=== PATIENT | male | born 1980 | race Caucasian/White ===

== ENCOUNTER 2024-11-20 17:21 | Emergency (ER) | payer BC ==
[2024-11-20] MEDS: MORPHINE SULFATE 4 MG/ML SYRINGE IM STA (19:38)
[2024-11-20] MEDS: CLINDAMYCIN 150 MG/ML 4 ML VIAL IM STA (19:38)
[2024-11-20] MEDS: KETOROLAC 15 MG/ML 1 ML VIAL IM STA (19:39)
--- NOTE | 2024-11-20 19:42 | ED ---
ENT HPI - General Chief complaint: Dental/Oral Stated complaint: bottom right side tooth absess Time Seen by Provider: 11/20/24 19:00 Source: patient, RN notes reviewed Mode of arrival: ambulatory Limitations: no limitations - History of Present Illness Initial comments: This is a 44-year-old male who presents to the emergency department for concerns of a dental infection. Patient has been dealing with a dental infection on the right lower jaw for the last couple of weeks. He was put on Pen-Vee K, which he has since finished. States that it did not get any better. The tooth is also broken. He is usually able to control his pain with ibuprofen, however that has not been the case this time. He is unable to get it removed until the end of November. Denies any fevers or chills. MD complaint: tooth pain - Related Data Previous Rx's Medication Instructions Recorded HYDROcodone/APAP 5-325MG [Townsend 1 tab PO Q6HR PRN 3 Days #12 tab 11/20/24 5-325] Ketorolac [Toradol] 10 mg PO Q6HR PRN #15 tab 11/20/24 clindamycin HCL 300 mg PO QID 7 Days #28 capsule 11/20/24 Allergies Allergy/AdvReac Type Severity Reaction Status Date / Time No Known Allergies Allergy Verified 11/20/24 17:32 Review of Systems ROS Statement: Those systems with pertinent positive or pertinent negative responses have been documented in the HPI. ROS Other: All systems not noted in ROS Statement are negative. Past Medical History Past Medical History: Pulmonary Embolus (PE) Additional Past Medical History / Comment(s): Ulcerative Colitis Past Surgical History: Back Surgery Smoking Status: Never smoker Past Alcohol Use History: Rare Past Drug Use History: None Reported General Exam Limitations: no limitations General appearance: alert, in no apparent distress Head exam: Present: atraumatic, normocephalic, normal inspection ENT exam: Present: other (Multiple dental caries with cracked teeth on the right lower jawline. Mild fullness without palpable or drainable abscess. No elevation of the tongue or swelling to the floor of the mouth.) Respiratory exam: Present: normal lung sounds bilaterally. Absent: respiratory distress, wheezes, rales, rhonchi, stridor Cardiovascular Exam: Present: regular rate, normal rhythm, normal heart sounds. Absent: systolic murmur, diastolic murmur, rubs, gallop, clicks Neurological exam: Present: alert, oriented X3, CN II-XII intact Psychiatric exam: Present: normal affect, normal mood Course Vital Signs 11/20/24 11/20/24 17:32 20:23 Temperature 97.4 F L 97.7 F Pulse Rate 74 78 Respiratory 20 18 Rate Blood Pressure 137/88 125/84 O2 Sat by Pulse 100 98 Oximetry Medical Decision Making - Medical Decision Making This is a 44-year-old male who presents to the emergency department for dental pain. Was pt. sent in by a medical professional or institution? @ -No Did you speak to anyone other than the patient for history? @ -No Did you review nursing and triage notes? @ -Yes, and I agree, it is accurate with regards to the patient's symptoms. Were old charts reviewed? @ -No Differential Diagnosis? @ -Differential Dental Pain: Dental abscess, chipped tooth, dental carries, jonel's angina, trigeminal neuralgia, this is not meant to be an all-inclusive list. EKG interpreted by me (3pts min.)? @ -Not obtained X-rays interpreted by me (1pt min.)? @ -Not obtained CT interpreted by me (1pt min.)? @ -Not obtained U/S interpreted by me (1pt. min.)? @ -Not obtained What testing was considered but not performed? (CT, X-rays, U/S, labs)? Why? @ -None What meds were considered but not given? Why? @ -None Did you discuss the management of the patient with other professionals? @ -No Did you reconcile home meds? @ -No Was smoking cessation discussed for >3mins.? @ -No Was critical care preformed (if so, how long)? @ -No Were there social determinants of health that impacted care today? How? (Homelessness, low income, unemployed, alcoholism, drug addiction, transportation, low edu. Level, literacy, decrease access to med. care, [facility]ci, rehab)? @ -No Was there de-escalation of care discussed even if they declined? (Discuss DNR or withdrawal of care, Hospice)? @ -No What co-morbidities impacted this encounter? (DM, HTN, Smoking, COPD, CAD, Cancer, CVA, Hep., AIDS, mental health diagnosis, sleep apnea, morbid obesity)? @ -None Was patient admitted / discharged? @ -Discharged. Physical examination reveals multiple dental caries and chipped teeth. He had some mild fullness and signs of infection, however there was no drainable or palpable abscess. He also had no elevation of the tongue or swelling to the floor of the mouth to suggest Jonel's angina. Given that he had no improvement with Pen-Vee K, advised that we can put him on clindamycin. This was prescribed and an initial dose was administered in the emergency d epartment. Toradol prescribed for pain control. Patient discharged home in stable condition. Case discussed with ED attending Dr. Membreno. Return precautions reviewed in depth, the patient is instructed to return to the emergency department with any new, worsening, or concerning symptoms. Patient verbalized understanding. Undiagnosed new problem with uncertain prognosis? @ -None Drug Therapy requiring intensive monitoring for toxicity (Heparin, Nitro, Insulin, Cardizem)? @ -None Were any procedures done? @ -None Diagnosis/symptom? @ -Dental infection Acute, or Chronic, or Acute on Chronic? @ -Acute Uncomplicated (without systemic symptoms) or Complicated (systemic symptoms)? @ -Uncomplicated Side effects of treatment? @ -None Exacerbation, Progression, or Severe Exacerbation] @ -Not applicable Poses a threat to life or bodily function? @ -No Disposition Clinical Impression: Dental infection Disposition: HOME SELF-CARE Instructions (If sedation given, give patient instructions): Dental Abscess (ED), Toothache (ED) Additional Instructions: Return to the emergency department with any new, worsening, or concerning symptoms. Take the antibiotic as prescribed for 7 days. Take the Toradol with Tylenol as needed for pain relief. If you choose to take the Toradol, do not take any other anti-inflammatories such as ibuprofen, take one or the other. Take the Townsend sparingly when your pain is the most severe. Follow-up with your dentist. Prescriptions: clindamycin HCL 300 mg PO QID 7 Days #28 capsule HYDROcodone/APAP 5-325MG [Townsend 5-325] 1 tab PO Q6HR PRN 3 Days #12 tab PRN Reason: Pain Ketorolac [Toradol] 10 mg PO Q6HR PRN #15 tab PRN Reason: Pain Is patient prescribed a controlled substance at d/c from ED?: Yes When asked, does pt state using other controlled substances?: No If prescribed controlled substance>3 days was MAPS reviewed?: Prescribed <3 Days Referrals: Nonstaff,Physician [Primary Care Provider] - 1-2 days Time of Disposition: 20:16
[2024-11-20 20:24] VITALS: BP 125/84; PULSE 78; RESP 18; TEMP 97.7
== END 2024-11-20 20:23 | disposition home or self-care (01) ==
LOC: EC 17:21
DX: K04.7 Periapical abscess without sinus (principal)
CPT/HCPCS: 99282; 96372 ×3; J2270; J1885; J0736